=== PATIENT | male | born 1980 | race Caucasian/White ===

== ENCOUNTER 2023-09-19 00:21 | Emergency (ER) | payer OTHER, SELFPAY ==
--- NOTE | ~2023-09-19 | XR_ITS ---
EXAMINATION: XR HIP, RIGHT CLINICAL INFORMATION: Injury COMPARISON: None available. TECHNIQUE: Two views of the right hip. AP pelvis. FINDINGS: Alignment across the hips is anatomic with relatively maintained joint spaces. No acute fracture is seen. Sacroiliac joints and pubic symphysis appear intact. XR/XR hip RT min 2V IMPRESSION: No acute findings identified.
--- NOTE | ~2023-09-19 | XR_ITS ---
EXAMINATION: XR KNEE, RIGHT CLINICAL INFORMATION: Injury COMPARISON: None available. TECHNIQUE: Four views of the right knee. FINDINGS: Osseous alignment is anatomic, with relatively maintained joint spaces. On the lateral view there is a thin curvilinear density in the suprapatellar region which may be artifactual/external though alternatively could reflect a displaced patellar fracture fragment off the superior patella at the quadriceps tendon insertion. Trace joint effusion suspected. XR/XR knee RT 4V IMPRESSION: Thin curvilinear density in the suprapatellar region on the lateral view may be artifactual/external though alternatively could reflect a displaced patellar fracture fragment at the quadriceps tendon insertion. Repeat lateral radiograph with removal of all external objects would be helpful to reassess. Trace joint effusion suspected.
--- NOTE | ~2023-09-19 | XR_ITS ---
EXAMINATION: XR KNEE, RIGHT CLINICAL INDICATION: Repeat lateral radiograph COMPARISON: Radiographs from the same day TECHNIQUE: Lateral view of the right knee. FINDINGS: Curvilinear density overlying the suprapatellar region on the prior radiograph is no longer present, most consistent with an external/artifactual density. Alignment is anatomic. No evidence of acute fracture. No significant effusion. XR/XR knee RT 1V IMPRESSION: No acute findings. Curvilinear density overlying the suprapatellar region on the prior radiograph is no longer present, most consistent with an external/artifactual density.
[2023-09-19 00:25] VITALS: BP 130/80; PULSE 90; O2SAT 99
[2023-09-19 00:37] VITALS: BP 145/53; PULSE 88; RESP 16; O2SAT 98
[2023-09-19 00:39] VITALS: BP 145/53; PULSE 88; RESP 16; O2SAT 98; BMI 50.2
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
[2023-09-19 02:15] VITALS: BP 168/88; PULSE 78; RESP 16; O2SAT 99
[2023-09-19 06:02] VITALS: BP 138/80; PULSE 68; RESP 16; O2SAT 98
[2023-09-19 07:12] VITALS: BP 134/68; PULSE 68; RESP 16; TEMP 36.8; O2SAT 98
== END 2023-09-19 07:13 | disposition home or self-care (01) ==
PROVIDERS: Emergency Provider Emergency Medicine Emergency Medical Services
DX: M23.91 Unspecified internal derangement of right knee (principal); M25.561 Pain in right knee; M25.551 Pain in right hip
CPT/HCPCS: 73502; 73560; 73564; 99283; 99284